=== PATIENT | female | born 1985 | race Hispanic/Latino ===

== ENCOUNTER 2017-10-04 23:18 | Emergency (ER) | payer MEDICAID ==
[2017-10-05] MEDS ORDERED: AMOXICILLIN 500 MG CAPSULE PO ONE (00:06)
[2017-10-05] MEDS ORDERED: KETOROLAC TROMETHAMINE 60 MG/2 ML VIAL ONE (00:06)
== END 2017-10-05 00:20 | disposition home or self-care (01) ==
LOC: EDH 23:18
DX: K08.89 Other specified disorders of teeth and supporting structures (principal); K02.9 Dental caries, unspecified; I10 Essential (primary) hypertension; E07.9 Disorder of thyroid, unspecified; Z88.6 Allergy status to analgesic agent
CPT/HCPCS: 81025; 96372; 99283; J1885

== ENCOUNTER 2019-01-19 19:52 | Emergency (ER) | payer MEDICAID ==
[2019-01-19] MEDS ORDERED: AMOXICILLIN/POTASSIUM CLAV 875-125 TABLET PO ONE (20:40)
[2019-01-19] MEDS ORDERED: KETOROLAC TROMETHAMINE 60 MG/2 ML VIAL ONE (20:40)
== END 2019-01-19 21:04 | disposition home or self-care (01) ==
LOC: EDH 19:52
DX: K02.9 Dental caries, unspecified (principal); I10 Essential (primary) hypertension; E07.9 Disorder of thyroid, unspecified; Z88.6 Allergy status to analgesic agent
CPT/HCPCS: 96372; 99283; J1885

== ENCOUNTER 2019-04-30 14:15 | Emergency (ER) | payer MEDICAID ==
[2019-04-30 14:57] LABS: APPEARANCE,URINE Cloudy (CLEAR); BILIRUBIN,URINE Negative (NEGATIVE); COLOR,URINE Yellow (YELLOW); GLUCOSE, URINE (UA) Negative (NEGATIVE); KETONES,URINE Negative (NEGATIVE); LEUKOCYTE ESTERASE ,URINE Trace (NEGATIVE); NITRATE,URINE Negative (NEGATIVE); OCCULT BLOOD,URINE Small (NEGATIVE); PH,URINE 5.5 (5.0-8.0); PROTEIN,URINE Negative (NEGATIVE)
[2019-04-30 15:00] LABS: HCG,QUAL RESULT NEGATIVE (NEGATIVE)
[2019-04-30 15:13] LABS: BACTERIA,URINE Rare /HPF (None Seen)
[2019-04-30 15:45] LABS: BASOPHILS % (AUTO) 0.7 % (0.0-5.0); EOSINOPHILS % (AUTO) 1.1 % (0.0-8.0); HEMATOCRIT 38.9 % (36-48); LYMPHOCYTES % (AUTO) 22.3 % (21.0-51.0); MEAN CORPUSCULAR HEMOGLOBIN 24.2 pg (27.0-33.0); MEAN CORPUSCULAR HGB CONC 32.2 g/dL (32.0-36.0); MEAN CORPUSCULAR VOLUME 75.1 fL (79-99); MONOCYTES % (AUTO) 5.7 % (3.0-13.0); NEUTROPHILS % (AUTO) 70.2 % (40.0-77.0); PLATELET COUNT (AUTO) 311 K/uL (130-400); RED BLOOD CELL COUNT(AUTO) 5.18 MIL/uL (4.00-5.50); RED CELL DISTRIBUTION WIDTH 16.4 % (11.0-15.5); WHITE BLOOD COUNT (AUTO) 10.3 K/uL (4.8-10.8)
[2019-04-30 16:06] LABS: CREATININE 0.9 mg/dL (0.5-1.5); POTASSIUM 4.2 mmol/L (3.5-5.1)
[2019-04-30 16:11] LABS: ALBUMIN 3.8 g/dL (3.5-5.0); BILIRUBIN,DIRECT 0.2 mg/dL (0.0-0.3); BILIRUBIN,TOTAL 0.6 mg/dL (0.2-1.0); TOTAL PROTEIN, SERUM 7.8 g/dL (6.0-8.3)
[2019-04-30] MEDS ORDERED: KETOROLAC TROMETHAMINE 60 MG/2 ML VIAL ONE (16:14)
== END 2019-04-30 17:17 | disposition home or self-care (01) ==
LOC: EDH 14:15
DX: N39.0 Urinary tract infection, site not specified (principal); I10 Essential (primary) hypertension; E07.9 Disorder of thyroid, unspecified; Z90.49 Acquired absence of other specified parts of digestive tract
CPT/HCPCS: 36415; 74176; 80048; 80076; 81001; 81025; 85025; 96372; 99285; J1885

== ENCOUNTER 2019-06-18 19:21 | Emergency (ER) | payer MEDICAID | END 2019-06-18 20:31 | disposition home or self-care (01) | LOC: EDH 19:21 | DX: F43.0 Acute stress reaction (principal); I10 Essential (primary) hypertension; E07.9 Disorder of thyroid, unspecified; Z88.6 Allergy status to analgesic agent; Z90.49 Acquired absence of other specified parts of digestive tract; Z98.51 Tubal ligation status | CPT/HCPCS: 93005 ==

== ENCOUNTER 2019-07-10 00:45 | Emergency (ER) | payer MEDICAID | END 2019-07-10 01:38 | disposition left against medical advice (07) | LOC: EDH 00:45 | DX: R13.10 Dysphagia, unspecified (principal); J02.9 Acute pharyngitis, unspecified; I10 Essential (primary) hypertension; Z90.49 Acquired absence of other specified parts of digestive tract; Z98.51 Tubal ligation status | CPT/HCPCS: 99281 ==

== ENCOUNTER 2020-07-21 20:59 | Emergency (ER) | payer MEDICAID ==
[2020-07-21] MEDS ORDERED: KETOROLAC TROMETHAMINE 60 MG/2 ML VIAL ONE (21:36)
[2020-07-21] MEDS ORDERED: CYCLOBENZAPRINE HCL 10 MG TABLET ONE (21:37)
[2020-07-21 22:12] LABS: APPEARANCE,URINE Cloudy (CLEAR); BILIRUBIN,URINE Negative (NEGATIVE); COLOR,URINE Yellow (YELLOW); GLUCOSE, URINE (UA) TRACE mg/dL (NEGATIVE); KETONES,URINE Negative (NEGATIVE); LEUKOCYTE ESTERASE ,URINE Small (NEGATIVE); NITRATE,URINE Negative (NEGATIVE); OCCULT BLOOD,URINE Large (NEGATIVE); PH,URINE 5.5 (5.0-8.0); PROTEIN,URINE Trace mg/dL (NEGATIVE); UROBILINOGEN,URINE 0.2 mg/dL (0.2-1.0)
[2020-07-21 22:17] LABS: BACTERIA,URINE Few /HPF (None Seen); MUCUS,URINE Moderate LPF (None Seen); SQUAMOUS EPITHELIAL CELL,UR Moderate /HPF (0-2)
== END 2020-07-21 23:35 | disposition home or self-care (01) ==
LOC: EDH 20:59
DX: M54.5 Low back pain (principal); I10 Essential (primary) hypertension; E07.9 Disorder of thyroid, unspecified; Z98.51 Tubal ligation status; Z90.49 Acquired absence of other specified parts of digestive tract; Z88.6 Allergy status to analgesic agent
CPT/HCPCS: 72100; 81001; 81025; 87088; 96372; 99284; J1885

== ENCOUNTER 2020-08-27 21:43 | Emergency (ER) | payer MEDICAID ==
[2020-08-27 22:31] LABS: BASOPHILS % (AUTO) 0.3 % (0.0-5.0); EOSINOPHILS % (AUTO) 0.2 % (0.0-8.0); HEMATOCRIT 38.8 % (36-48); LYMPHOCYTES % (AUTO) 14.6 % (21.0-51.0); MEAN CORPUSCULAR HEMOGLOBIN 22.6 pg (27.0-33.0); MEAN CORPUSCULAR HGB CONC 30.7 g/dL (32.0-36.0); MEAN CORPUSCULAR VOLUME 73.8 fL (79-99); MONOCYTES % (AUTO) 5.9 % (3.0-13.0); NEUTROPHILS % (AUTO) 78.5 % (40.0-77.0); PLATELET COUNT (AUTO) 345 K/uL (130-400); RED BLOOD CELL COUNT(AUTO) 5.26 MIL/uL (4.00-5.50); RED CELL DISTRIBUTION WIDTH 16.5 % (11.0-15.5); WHITE BLOOD COUNT (AUTO) 15.7 K/uL (4.8-10.8)
[2020-08-27 22:40] LABS: RAPID GROUP A STREP NEGATIVE (NEGATIVE)
[2020-08-27] MEDS ORDERED: IPRATROPIUM/ALBUTEROL SULFATE 3 ML SOLUTION IH ONE (22:47)
[2020-08-27 22:51] LABS: CREATININE 0.9 mg/dL (0.5-1.5); POTASSIUM 3.5 mmol/L (3.5-5.1)
[2020-08-27 22:56] LABS: ALBUMIN 3.6 g/dL (3.5-5.0); BILIRUBIN,TOTAL 0.3 mg/dL (0.2-1.0); TOTAL PROTEIN, SERUM 7.6 g/dL (6.0-8.3)
[2020-08-27] MEDS ORDERED: DEXAMETHASONE SOD PHOSPHATE 10MG/ML 1ML VIAL ONE (23:27)
== END 2020-08-27 23:44 | disposition home or self-care (01) ==
LOC: EDH 21:43
DX: J45.21 Mild intermittent asthma with (acute) exacerbation (principal); J20.9 Acute bronchitis, unspecified; Z20.828 Contact with and (suspected) exposure to other viral communicable diseases; I10 Essential (primary) hypertension; E07.9 Disorder of thyroid, unspecified; Z88.6 Allergy status to analgesic agent; Z90.49 Acquired absence of other specified parts of digestive tract; Z98.890 Other specified postprocedural states
CPT/HCPCS: 36415; 71046; 80053; 84484; 85025; 87426; 87804 ×2; 87880; 93005; 94640; 96372; 99285; J1100; U0003

== ENCOUNTER 2020-09-13 11:26 | Emergency (ER) | payer MEDICAID | END 2020-09-13 14:59 | disposition home or self-care (01) | LOC: EDH 11:26 | DX: J02.9 Acute pharyngitis, unspecified (principal); I10 Essential (primary) hypertension; J45.909 Unspecified asthma, uncomplicated; Z98.51 Tubal ligation status; Z88.6 Allergy status to analgesic agent; Z53.21 Procedure and treatment not carried out due to patient leaving prior to being seen by health care provider ==

== ENCOUNTER 2021-10-06 11:15 | Emergency (ER) | payer MEDICAID ==
[~2021-10-06] VITALS: Ht 165.1 cm; Wt 110.2 kg
[2021-10-06 11:39] LABS: BASOPHILS % (AUTO) 0.3 % (0.0-5.0); EOSINOPHILS % (AUTO) 0.1 % (0.0-8.0); HEMATOCRIT 44.9 % (36-48); LYMPHOCYTES % (AUTO) 7.3 % (21.0-51.0); MEAN CORPUSCULAR HEMOGLOBIN 24.6 pg (27.0-33.0); MEAN CORPUSCULAR VOLUME 79.6 fL (79-99); MONOCYTES % (AUTO) 5.2 % (3.0-13.0); NEUTROPHILS % (AUTO) 86.6 % (40.0-77.0); PLATELET COUNT (AUTO) 290 K/uL (130-400); RED BLOOD CELL COUNT(AUTO) 5.64 MIL/uL (4.00-5.50); WHITE BLOOD COUNT (AUTO) 16.5 K/uL (4.8-10.8)
[2021-10-06 11:45] LABS: APPEARANCE,URINE Turbid (CLEAR); BILIRUBIN,URINE Negative (NEGATIVE); COLOR,URINE Yellow (YELLOW); GLUCOSE, URINE (UA) Negative (NEGATIVE); KETONES,URINE Negative (NEGATIVE); LEUKOCYTE ESTERASE ,URINE Large (NEGATIVE); NITRATE,URINE Negative (NEGATIVE); OCCULT BLOOD,URINE Moderate (NEGATIVE); PROTEIN,URINE POS 2+ mg/dL (NEGATIVE)
[2021-10-06 11:49] LABS: CREATININE 0.9 mg/dL (0.5-1.5); POTASSIUM 3.7 mmol/L (3.5-5.1)
[2021-10-06 11:54] LABS: ALBUMIN 3.9 g/dL (3.5-5.0); BILIRUBIN,TOTAL 0.8 mg/dL (0.2-1.0); TOTAL PROTEIN, SERUM 8.1 g/dL (6.0-8.3)
[2021-10-06 12:33] LABS: WBC,URINE TNTC /HPF (0-1)
[2021-10-06 12:34] LABS: BACTERIA,URINE Moderate /HPF (None Seen); SQUAMOUS EPITHELIAL CELL,UR Rare /HPF (0-2)
[2021-10-06] MEDS ORDERED: AMOX500C2 PO (14:59)
[2021-10-06] MEDS ORDERED: IBUP-2077 PO (14:59)
[2021-10-06] MEDS ORDERED: DEXAMETHASONE 4 MG TAB PO SCH (15:00)
[2021-10-06] MEDS ORDERED: CEFTRIAXONE 1G VIAL IVP ONE (15:00)
[2021-10-06] MEDS ORDERED: DEXAMETHASONE 4 MG TAB ONE (15:10)
[2021-10-06] MEDS ORDERED: CEFTRIAXONE 1G VIAL ONE (15:10)
[2021-10-06] MEDS ORDERED: LIDOCAINE HCL-MPF 1% 2ML VIAL ONE (15:11)
[2021-10-06 15:33] VITALS: BP 127/82
== END 2021-10-06 15:34 | disposition home or self-care (01) ==
LOC: EDH 11:15
DX: J02.0 Streptococcal pharyngitis (principal); N39.0 Urinary tract infection, site not specified; D72.828 Other elevated white blood cell count; I10 Essential (primary) hypertension; E03.9 Hypothyroidism, unspecified; Z88.5 Allergy status to narcotic agent; Z79.899 Other long term (current) drug therapy
CPT/HCPCS: 36415; 80053; 81001; 84702; 85025; 87077; 87088; 87186; 87804 ×2; 87880; 96374; 99283; J0696; J3490; J8540

== ENCOUNTER 2023-03-15 19:10 | Emergency (ER) | payer MEDICAID ==
[~2023-03-15] VITALS: Ht 165.1 cm; Wt 95.9 kg
[~2023-03-15 19:10] MED LIST: AMOX500C2 PO; IBUP-2077 PO
[2023-03-15] MEDS ORDERED: PREDNISONE 20 MG TABLET PO ONE (20:00)
[2023-03-15 20:05] LABS: BASOPHILS % (AUTO) 0.6 % (0.0-5.0); EOSINOPHILS % (AUTO) 1.3 % (0.0-8.0); HEMATOCRIT 42.7 % (36-48); LYMPHOCYTES % (AUTO) 26.1 % (21.0-51.0); MEAN CORPUSCULAR HEMOGLOBIN 26.4 pg (27.0-33.0); MEAN CORPUSCULAR HGB CONC 32.1 g/dL (32.0-36.0); MEAN CORPUSCULAR VOLUME 82.3 fL (79-99); MONOCYTES % (AUTO) 7.1 % (3.0-13.0); NEUTROPHILS % (AUTO) 64.6 % (40.0-77.0); PLATELET COUNT (AUTO) 262 K/uL (130-400); RED BLOOD CELL COUNT(AUTO) 5.19 MIL/uL (4.00-5.50); RED CELL DISTRIBUTION WIDTH 13.6 % (11.0-15.5)
[2023-03-15 20:14] LABS: CREATININE 0.8 mg/dL (0.5-1.5); POTASSIUM 4.1 mmol/L (3.5-5.1)
[2023-03-15 20:19] LABS: ALBUMIN 3.6 g/dL (3.5-5.0); TOTAL PROTEIN, SERUM 7.6 g/dL (6.0-8.3)
[2023-03-15] MEDS ORDERED: IOHEXOL-350 75 ML VIAL IV ONE (21:22)
[2023-03-15] MEDS ORDERED: PRED20TA3 PO (22:34)
[2023-03-15] MEDS ORDERED: IBUP-2076 PO (22:34)
[2023-03-15 23:35] VITALS: BP 123/78
== END 2023-03-15 23:35 | disposition home or self-care (01) ==
LOC: EDH 19:10
DX: E04.9 Nontoxic goiter, unspecified (principal); M25.561 Pain in right knee; E06.3 Autoimmune thyroiditis; I10 Essential (primary) hypertension; E03.9 Hypothyroidism, unspecified; Z90.49 Acquired absence of other specified parts of digestive tract; Z88.5 Allergy status to narcotic agent; Z79.52 Long term (current) use of systemic steroids
CPT/HCPCS: 99285; 70491; 80053; 85025; 36415; 73562; Q9967

== ENCOUNTER → 2023-04-17 | Outpatient (CLI) | payer MEDICAID ==
[~2023-04-17] MED LIST changes: +IBUP-2076 PO; -IBUP-2077 PO; +PRED20TA3 PO
== END | disposition home or self-care (01) ==
LOC: RAH 14:42
PROVIDERS: ATTEND Internal Medicine
DX: E04.2 Nontoxic multinodular goiter (principal)
CPT/HCPCS: 76536

== ENCOUNTER 2023-07-12 17:26 | Emergency (ER) | payer MEDICAID ==
[~2023-07-12] VITALS: Ht 165.1 cm; Wt 106.1 kg
[2023-07-12 18:18] VITALS: BP 148/93; PULSE 76; RESP 16; O2SAT 98
[2023-07-12 18:53] LABS: BASOPHILS # (AUTO) 0.03 K/uL (0.00-0.20); BASOPHILS % (AUTO) 0.5 % (0.0-5.0); EOSINOPHILS # (AUTO) 0.08 K/uL (0.00-0.70); EOSINOPHILS % (AUTO) 1.2 % (0.0-8.0); HEMATOCRIT 44.1 % (36-48); IMMATURE GRANULOCYTE ABSOLUTE 0.04 K/uL (0-1); LYMPHOCYTES # (AUTO) 1.2 K/uL (1.0-4.8); LYMPHOCYTES % (AUTO) 19.3 % (21.0-51.0); MEAN CORPUSCULAR HEMOGLOBIN 27.3 pg (27.0-33.0); MEAN CORPUSCULAR HGB CONC 31.3 g/dL (32.0-36.0); MEAN CORPUSCULAR VOLUME 87.3 fL (79-99); MONOCYTES # (AUTO) 0.6 K/uL (0.1-1.0); NEUTROPHILS # (AUTO) 4.5 K/uL (1.8-7.7); NEUTROPHILS % (AUTO) 69.4 % (40.0-77.0); PLATELET COUNT (AUTO) 248 K/uL (130-400); RED BLOOD CELL COUNT(AUTO) 5.05 MIL/uL (4.00-5.50); RED CELL DISTRIBUTION WIDTH 14.1 % (11.0-15.5); WHITE BLOOD COUNT (AUTO) 6.4 K/uL (4.8-10.8)
[2023-07-12 18:58] LABS: APPEARANCE,URINE CLEAR (CLEAR); BILIRUBIN,URINE NEGATIVE (NEGATIVE); COLOR,URINE YELLOW (YELLOW); GLUCOSE, URINE (UA) NEGATIVE (NEGATIVE); KETONES,URINE NEGATIVE (NEGATIVE); LEUKOCYTE ESTERASE ,URINE 250 Leu/uL (NEGATIVE); NITRATE,URINE NEGATIVE (NEGATIVE); OCCULT BLOOD,URINE SMALL (NEGATIVE); PH,URINE 5.5 (5.0-8.0); PROTEIN,URINE 10 mg/dL (NEGATIVE); UROBILINOGEN,URINE 6 mg/dL (0.2-1.0)
[2023-07-12 18:59] LABS: ADD UA MICROSCOPIC YES
[2023-07-12 19:00] LABS: CREATININE 0.8 mg/dL (0.5-1.5); POTASSIUM 3.7 mmol/L (3.5-5.1)
[2023-07-12 19:04] LABS: BACTERIA,URINE RARE /HPF (None Seen); MUCUS,URINE FEW LPF (None Seen); SQUAMOUS EPITHELIAL CELL,UR FEW /HPF (0-2)
[2023-07-12] MEDS ORDERED: PHEN-847 PO (19:36)
[2023-07-12] MEDS ORDERED: SULF1TAB42 PO (19:36)
[2023-07-12] MEDS ORDERED: PHENAZOPYRIDINE HCL 200 MG TABLET PO ONE (20:00)
[2023-07-12] MEDS ORDERED: SULFAMETHOX-TMP DS 800/160 TAB PO SCH (20:00)
== END 2023-07-12 19:58 | disposition home or self-care (01) ==
LOC: EDH 17:26
DX: N39.0 Urinary tract infection, site not specified (principal)
CPT/HCPCS: 36415; 80048; 81001; 85025; 87088

== ENCOUNTER 2024-03-07 17:24 | Emergency (ER) | payer MEDICAID ==
[~2024-03-07] VITALS: Ht 165.1 cm; Wt 97.5 kg
[~2024-03-07 17:24] MED LIST changes: +PHEN-847 PO; +SULF1TAB42 PO
[2024-03-07 17:51] VITALS: TEMP 101.3
[2024-03-07] MEDS: 0.9%NACL 1000ML 1,000 ML IV ONE (17:51)
[2024-03-07] MEDS: ACETAMINOPHEN 500 MG TABLET PO ONE (17:51)
[2024-03-07 17:54] LABS: BASOPHILS # (AUTO) 0.01 K/uL (0.00-0.20); BASOPHILS % (AUTO) 0.2 % (0.0-5.0); HEMATOCRIT 42.9 % (36-48); IMMATURE GRANULOCYTE ABSOLUTE 0.02 K/uL (0-1); LYMPHOCYTES # (AUTO) 0.9 K/uL (1.0-4.8); LYMPHOCYTES % (AUTO) 17.8 % (21.0-51.0); MEAN CORPUSCULAR HEMOGLOBIN 27.1 pg (27.0-33.0); MEAN CORPUSCULAR HGB CONC 33.6 g/dL (32.0-36.0); MEAN CORPUSCULAR VOLUME 80.6 fL (79-99); MONOCYTES # (AUTO) 0.4 K/uL (0.1-1.0); MONOCYTES % (AUTO) 8.4 % (3.0-13.0); NEUTROPHILS # (AUTO) 3.7 K/uL (1.8-7.7); NEUTROPHILS % (AUTO) 73.2 % (40.0-77.0); PLATELET COUNT (AUTO) 185 K/uL (130-400); RED BLOOD CELL COUNT(AUTO) 5.32 MIL/uL (4.00-5.50); RED CELL DISTRIBUTION WIDTH 14.3 % (11.0-15.5); WHITE BLOOD COUNT (AUTO) 5.1 K/uL (4.8-10.8)
[2024-03-07 18:08] LABS: POTASSIUM 3.7 mmol/L (3.5-5.1)
[2024-03-07 18:15] LABS: RAPID GROUP A STREP negative (NEGATIVE)
[2024-03-07 18:16] LABS: SARS-CoV-2, RNA, NAAT NEGATIVE SARS CoV-2 (NEGATIVE)
[2024-03-07 18:24] LABS: INFLUENZA TYPE A Negative For Type A (NEGATIVE); INFLUENZA TYPE B Negative For Type B (NEGATIVE)
[2024-03-07 19:18] LABS: ADD UA MICROSCOPIC YES; APPEARANCE,URINE CLEAR (CLEAR); BILIRUBIN,URINE NEGATIVE (NEGATIVE); COLOR,URINE LIGHT-YELLOW (YELLOW); GLUCOSE, URINE (UA) NEGATIVE (NEGATIVE); KETONES,URINE NEGATIVE (NEGATIVE); LEUKOCYTE ESTERASE ,URINE NEGATIVE Leu/uL (NEGATIVE); NITRATE,URINE NEGATIVE (NEGATIVE); OCCULT BLOOD,URINE NEGATIVE (NEGATIVE); PROTEIN,URINE NEGATIVE (NEGATIVE)
[2024-03-07 19:22] LABS: RBC,URINE 0-1 /HPF (0-1); SQUAMOUS EPITHELIAL CELL,UR RARE /HPF (0-2); WBC,URINE 0-1 /HPF (0-1)
[2024-03-07] MEDS: CEFTRIAXONE 1G VIAL IVPB ONE (19:24)
[2024-03-07 20:08] VITALS: BP 118/52; PULSE 110; RESP 20; O2SAT 98
== END 2024-03-07 20:10 | disposition home or self-care (01) ==
LOC: EDH 17:24
DX: B34.9 Viral infection, unspecified (principal); I10 Essential (primary) hypertension; E03.9 Hypothyroidism, unspecified; Z79.899 Other long term (current) drug therapy; Z90.49 Acquired absence of other specified parts of digestive tract; Z90.710 Acquired absence of both cervix and uterus; Z98.890 Other specified postprocedural states; Z20.822 Contact with and (suspected) exposure to COVID-19
CPT/HCPCS: 99285; 96365; 96361; 71045; 87635; 82550; 84484; 80048; 85025; 87040 ×2; 87086; 87880; 87804 ×2; 83605; 86000 ×6; 81001; 36415; 93005; 84145; J7030; J0696

== ENCOUNTER 2025-04-21 17:10 | Emergency (ER) | payer SELFPAY ==
[~2025-04-21] VITALS: Ht 165.1 cm; Wt 96.2 kg
--- NOTE | 2025-04-21 17:25 | ERN ---
General Chief Complaint: Toe Pain/Injury Stated Complaint: RT BIG TOE INJURY Time Seen by MD: 17:13 Time Seen by Midlevel: 17:13 Source: patient History of Present Illness Initial Comments The patient is a 40-year-old female presenting to the emergency department for evaluation of pain and swelling to her right great toe. The patient states she was walking around at home when she accidentally stepped on a toy that made her fall. When she fell she accidentally twisted her right great toe. Denies any other injury. This occurred last night but waited until today due to increased pain and swelling to the area. Allergies: Coded Allergies: No Known Drug Allergies (Verified Allergy, Unknown, 01/28/15) codeine (Unverified Allergy, Unknown, 04/30/19) Home Meds Active Scripts Phenazopyridine HCl (Pyridium) 200 Mg Tab, 200 MG PO TIDPC, #9 TAB TAKE WITH FOOD TO PREVENT STOMACH UPSET. Prov:[facility] 07/12/23 Sulfamethoxazole/Trimethoprim (Bactrim Ds Tablet) 800 Mg-160 Mg Tablet, 1 TAB PO BID for 7 Days, #14 TAB 0 Refills Prov:[facility] 07/12/23 Prednisone (Prednisone) 20 Mg Tablet, 1 TAB PO AD for 6 Days, #14 TAB 0 Refills TAKE 3 TAB BY MOUTH daily X3 DAYS, THEN TAKE 2 TAB BY MOUTH daily X2 DAYS, THEN TAKE 1 TAB BY MOUTH ONCE A DAY X1 DAY. Prov:LALI CASTRO MD 03/15/23 Ibuprofen (Ibuprofen) 400 Mg Tablet, 400 MG PO TIDP, #30 TAB Prov:LALI CASTRO MD 03/15/23 Amoxicillin (Amoxicillin) 500 Mg Capsule, 500 MG PO TID, #30 Prov:[facility] 10/06/21 Past Medical History Past Medical History: Hypertension, Other Medical History Other: THYROID Past Surgical History: Hysterectomy, BTL Surgical History Other: TUBAL LIGATION Social History Social History: Negative, Lives with family Female( History) History: Not Applicable ROS Dictation CONSTITUTIONAL: Negative except for HPI HEAD/FACE: Negative except for HPI EENT: Negative except for HPI RESPIRATORY: Negative except for HPI GASTROINTESTINAL/ABDOMINAL: Negative except for HPI GENITOURINARY: Negative except for HPI MUSCULOSKELETAL: Negative except for HPI INTEGUMENTARY: Negative except for HPI NEUROLOGICAL/PSYCH: Negative except for HPI HEMATOLOGIC/LYMPHATIC: Negative except for HPI All Systems Negative, Except as noted above. 13 point review of systems assessed and all negative except for above. Physical Exam Physical Exam Dictation Vital Signs reviewed General Appearance: Alert, oriented x 3, no acute distress, well developed, nourished. Head and Face: non-traumatic. Eyes: PERRL, pink conjunctivas, eyelid no trauma, anterior chamber with arcus senilis. Ears: Pinnas intact and no signs of trauma or erythema ear canals clear and no discharge TM no erythema Nose: No discharge, no bleeding. Oropharynx: Mouth normal, tongue pink, pharynx clear,no erythema, tonsils no exudates, no abscesses noted, mucous membrane moist Neck: Supple, non-tender, no thyromegaly, no masses, no JVD, no bruits Breast:Deferred Chest:No tenderness, no crepitus, no paradoxical movement, no retractions Lungs:Clear, well-ventilated, symmetric, no rales, no wheezing, no rhonchi, no stridor, good breath sounds bilaterally Heart: Regular rate, regular rhythm, no murmur, no gallops Vascular: no peripheral edema, Abdomen: Soft, positive bowel sounds, nondistended, no guarding, nontender, no rebound, no masses no hepatomegaly, no splenomegaly, no Best's sign, no hernias. Rectal: Deferred Genital: Deferred Neurological: Normal speech, motor function intact, sensory function intact Musculoskeletal: Neck nontender, full range of motion, back nontender, full range of motion, Extremities: nontender, full range of motion Skin: Color pink, dry, no turgor, no rash, no lacerations, no abrasions, no contusions. Lymphatic: Deferred MDM MDM: The patient is a 40-year-old female presenting to the emergency department for evaluation of pain and swelling to her right great toe. The patient states she was walking around at home when she accidentally stepped on a toy that made her fall. When she fell she accidentally twisted her right great toe. Denies any other injury. This occurred last night but waited until today due to increased pain and swelling to the area. On physical examination patient has bruising to the right great toe with moderate amount of swelling and tenderness. Range of motion is restricted secondary to pain. There was normal capillary refill. Sensation is intact. X-ray reveals a nondisplaced distal right great toe fracture. The patient was placed on an ortho boot and will be discharged home with supportive management. Patient advised to follow up with consumer education specialist for further evaluation. Patient refused pain medications in the emergency department and refused prescription great pain medication. Differential diagnosis: Fracture, contusion, dislocation There are no social concerns with this patient. Prescription drug management Prescriptions will include: None Medical management and examination interpretation discussions were had by me with other qualified healthcare professionals as indicated for the patient's care. ED Course Orders Procedure Category Date Status Time Toe(S) 2+Vws Rt RAD 04/21/25 Taken 17:16 Vital Signs Date Time Temp Pulse Resp B/P (MAP) Pulse Ox O2 Delivery O2 Flow Rate FiO2 04/21/25 17:51 98.2 65 16 134/85 98 Room Air* 0 21 04/21/25 17:11 98.1 68 16 134/86 99 Room Air 0 DX & DISP Disposition: Discharge Departure Impression: Primary Impression: Fracture of right great toe Condition: Stable Referrals: SELF,REFERRAL (PCP) ANISHA RIVAS MD I have reviewed the case, and I agree with, Diagnosis and Plan I performed the substantive portion of the visit. I have reviewed and personally made and approve the management plan that is documented in the note by myself or the KAMALA. I acknowledge for responsibility for the patient's management plan. BOY THOMAS Apr 21, 2025 17:25
[2025-04-21 17:51] VITALS: BP 134/85; PULSE 65; RESP 16; TEMP 98.3; O2SAT 98
--- NOTE | 2025-04-21 18:03 | NUR ---
ORTHO BOOT PLACED PER ROTOR WINDER
--- NOTE | 2025-04-21 18:24 | HMCIMG ---
EXAM: CR Toes, right, 1 View. CLINICAL HISTORY: r/o fx COMPARISON: None provided. FINDINGS: Nondisplaced extra-articular fracture at the base of the great toe distal phalanx. Joint spaces remain anatomically aligned. Great toe soft tissue edema. IMPRESSION: 1. Nondisplaced extra-articular fracture at the base of the right great toe distal phalanx with soft tissue edema. /[place]
== END 2025-04-21 18:09 | disposition home or self-care (01) ==
LOC: EDH 17:10
DX: S92.424A Nondisplaced fracture of distal phalanx of right great toe, initial encounter for closed fracture (principal); I10 Essential (primary) hypertension; Z88.5 Allergy status to narcotic agent; Z90.710 Acquired absence of both cervix and uterus; Z79.899 Other long term (current) drug therapy; X50.1XXA Overexertion from prolonged static or awkward postures, initial encounter; Y93.01 Activity, walking, marching and hiking; Y92.89 Other specified places as the place of occurrence of the external cause; Y99.8 Other external cause status
CPT/HCPCS: 73660; 99283